=== PATIENT | male | born 1980 | race Caucasian/White ===

== ENCOUNTER 2017-01-07 11:31 | Emergency (ER) | payer OTHER ==
[~2017-01-07] VITALS: Ht 172.7 cm; Wt 85.0 kg
[~2017-01-07 11:31] MED LIST: CARAFATE100 MG/ML PO; ZANTAC150 MG PO
[2017-01-07 12:12] LABS: HEMATOCRIT 48.9 % (38.0-50.0); MCH 30.1 PG (29.0-34.0); MCHC 36.2 G/DL (30.0-36.0); MEAN PLAT.VOLUME 11.5 uM^3 (9.0-12.4); PLATELET COUNT 169 K/uL (156-360); RBC DIS.WIDTH-CV 12.5 % (11.8-14.6); RBC DIS.WIDTH-SD 37.9 % (39-53); RED BLOOD COUNT 5.89 M/uL (4.00-5.50); WHITE BLOOD COUNT 10.3 K/uL (4.1-10.2)
[2017-01-07 12:32] LABS: CHLORIDE 101 mEq/L (99-109); POTASSIUM 4.2 mEq/L (3.7-5.4); SODIUM 135 mEq/L (136-147)
[2017-01-07 12:34] LABS: GLUCOSE 113 mg/dL (70-99)
[2017-01-07 12:35] LABS: ANION GAP 11 MEQ/L (2-14)
[2017-01-07 12:36] LABS: TOTAL BILIRUBIN 0.7 mg/dL (0.0-1.0)
[2017-01-07 12:38] LABS: ALKALINE PHOSPHATASE 72 IU/L (3-129); GFR ESTIMATE (CALCULATED) > 59 mL/min/
[2017-01-07 12:39] LABS: UREA NITROGEN (BUN) 19 mg/dL (9-23)
[2017-01-07 13:24] LABS: LIPASE < 3.0 U/L (1.0-51.0)
[2017-01-07 16:18] LABS: ADD MIUA? NO; BILIRUBIN SMALL; BLOOD NEGATIVE; COLOR DK YELLOW ((YELLOW)); GLUCOSE (STRIP) NEGATIVE; KETONES TRACE; LEUKOCYTES NEGATIVE; NITRITE NEGATIVE; PH, URINE 5.5 (5-8); PROTEIN (STRIP) TRACE; UCUL ADDED? NO
[2017-01-07] MEDS ORDERED: ZOFRAN ODT4 MG PO (16:38)
[2017-01-07] MEDS ORDERED: BENTYL20 MG PO (16:38)
[2017-01-07 17:06] VITALS: BP 126/94
== END 2017-01-07 17:08 | disposition home or self-care (01) ==
LOC: EME 11:31
DX: R11.2 Nausea with vomiting, unspecified (principal); R19.7 Diarrhea, unspecified; E86.0 Dehydration; F17.200 Nicotine dependence, unspecified, uncomplicated
CPT/HCPCS: 80053; 81003; 83690; 85027; 87177; 87493; 87506; 99281; 99285; J1885; J7030

== ENCOUNTER 2018-01-03 22:59 | Emergency (ER) | payer OTHER ==
[~2018-01-03] VITALS: Ht 175.3 cm; Wt 94.1 kg
[~2018-01-03 22:59] MED LIST changes: +BENTYL20 MG PO; +ZOFRAN ODT4 MG PO
[2018-01-04] MEDS ORDERED: XARELTO15 MG PO (01:33)
[2018-01-04 01:43] VITALS: BP 129/87
== END 2018-01-04 01:45 | disposition home or self-care (01) ==
LOC: EME 22:59
DX: I82.411 Acute embolism and thrombosis of right femoral vein (principal); I82.431 Acute embolism and thrombosis of right popliteal vein; I82.441 Acute embolism and thrombosis of right tibial vein; M25.561 Pain in right knee; F17.200 Nicotine dependence, unspecified, uncomplicated
CPT/HCPCS: 93971; 99281; 99283

== ENCOUNTER → 2018-02-12 | Outpatient (CLI) | payer OTHER ==
[~2018-02-12] MED LIST changes: +XARELTO15 MG PO
== END | disposition home or self-care (01) ==
LOC: RAD 16:47
DX: I73.89 Other specified peripheral vascular diseases (principal)
CPT/HCPCS: 93926

== ENCOUNTER → 2018-05-14 | Outpatient (CLI) | payer OTHER | END | disposition home or self-care (01) | LOC: CDC 11:34 | DX: Z01.810 Encounter for preprocedural cardiovascular examination (principal); S83.511D Sprain of anterior cruciate ligament of right knee, subsequent encounter; M25.561 Pain in right knee; R26.2 Difficulty in walking, not elsewhere classified | CPT/HCPCS: 93000 ==

== ENCOUNTER 2018-05-16 05:26 | Day surgery (SDC) | payer OTHER ==
[~2018-05-16] VITALS: Ht 175.3 cm; Wt 92.5 kg
[2018-05-16 05:49] VITALS: BP 130/81
[2018-05-16 06:07] VITALS: BP 130/81
[2018-05-16 13:31] VITALS: BP 120/69
[2018-05-16 14:12] VITALS: BP 113/67
== END 2018-05-16 14:14 | disposition home or self-care (01) ==
LOC: SDC
PROC: 0SBC4ZZ Excision of Right Knee Joint, Percutaneous Endoscopic Approach (ICD-10-PCS; principal; 2018-05-16)
PROC: 0MRN47Z Replacement of Right Knee Bursa and Ligament with Autologous Tissue Substitute, Percutaneous Endoscopic Approach (ICD-10-PCS; principal; 2018-05-16)
DX: S83.511A Sprain of anterior cruciate ligament of right knee, initial encounter (principal); S83.211A Bucket-handle tear of medial meniscus, current injury, right knee, initial encounter; Z86.718 Personal history of other venous thrombosis and embolism; W01.0XXA Fall on same level from slipping, tripping and stumbling without subsequent striking against object, initial encounter
CPT/HCPCS: C1713; J0171; J0330; J0690; J1100; J1170; J2250; J2405; J2795; J3010